=== PATIENT | male | born 1960 | race American Indian/Alaskan Native ===

== ENCOUNTER 2019-11-01 11:34 | Emergency (ER) | payer BC ==
--- NOTE | 2019-11-01 11:41 | Emergency Department Report ---
Blank Doc - Documentation Documentation: 58-year-old male that was sent by PCP for headache and left sided weakness to r/o CVA. Stated symptoms started 4 days ago. This initial assessment/diagnostic orders/clinical plan/treatment(s) is/are subject to change based on patient's health status, clinical progression and re- assessment by fellow clinical providers in the ED. Further treatment and workup at subsequent clinical providers discretion. Patient/guardians urged not to elope from the ED as their condition may be serious if not clinically assessed and managed. Initial orders include: 1- Patient sent to [facility] for further evaluation and treatment 2- stroke protocol
--- NOTE | 2019-11-01 12:20 | Cat Scan Report ---
CT BRAIN: 11/01/2019 INDICATION / CLINICAL INFORMATION: Stroke symptoms. COMPARISON: None available. FINDINGS: BRAIN/INTRACRANIAL STRUCTURES: Unenhanced CT images of the brain demonstrate no evidence of acute int racranial abnormality. Ventricles and sulci are normal in size and shape. There is no evidence of ischemic injury, hemorrhage, or mass. There are no abnormal extra-axial fluid collections. EXTRACRANIAL STRUCTURES: Unremarkable. IMPRESSION: Negative unenhanced CT of the brain. All CT scans at this location are performed using dose reduction to ALARA by means of automated expos ure control. Signer Name: Sha Meng MD Signed: 11/01/2019 12:16 PM Workstation Name: [id number]
[2019-11-01 12:52] LABS: Basophils # (Auto) 0.1 K/mm3 (0.0-0.1); Basophils % (Auto) 1.1 % (0.0-1.8); Eosinophils # (Auto) 0.2 K/mm3 (0.0-0.4); Hematocrit 58.9 % (35.5-45.6); Hemoglobin 19.2 gm/dl (11.8-15.2); Lymphocytes # (Auto) 1.1 K/mm3 (1.2-5.4); Lymphocytes % (Auto) 11.1 % (13.4-35.0); Mean Corpuscular HGB Conc 33 % (32-34); Mean Corpuscular Volume 80 fl (84-94); Monocytes # (Auto) 0.7 K/mm3 (0.0-0.8); Monocytes % (Auto) 7.4 % (0.0-7.3); Platelet Count 502 K/mm3 (140-440); Red Blood Count 7.37 M/mm3 (3.65-5.03); Red Cell Distribution Width 15.8 % (13.2-15.2)
[2019-11-01 13:02] LABS: INR 1.09 (0.87-1.13)
[2019-11-01 13:03] LABS: Partial Thromboplastin Time 33.7 Sec. (24.2-36.6); Thrombin Time 18.2 Sec. (15.1-19.6)
[2019-11-01 13:26] LABS: Creatine Kinase MB 2.3 ng/mL (0.0-4.0)
[2019-11-01 13:27] LABS: Alanine Aminotransferase 18 units/L (7-56); Albumin 4.5 g/dL (3.9-5); BUN/Creatinine Ratio 11; Blood Urea Nitrogen 13 mg/dL (9-20); Calcium 9.5 mg/dL (8.4-10.2); Hemolysis Index 26
--- NOTE | 2019-11-01 20:20 | Emergency Department Report ---
ED Neuro Deficit HPI - General Chief Complaint: Neuro Symptoms/Deficit Stated Complaint: POSS STROKE Time Seen by Provider: 11/01/19 11:40 Source: patient Mode of arrival: Ambulatory Limitations: No Limitations - History of Present Illness Initial Comments: Patient is a 58-year-old male that presents emergency room with complaints of headache, left arm weakness and left arm numbness. Patient states his symptoms started 4 to 5 days ago. Patient states his symptoms are worsening. Patient states his headache at this time is a 2 out of 10. Patient states when he arrived here his headache was a 10 out of 10. Patient states his headache is better with rest and ibuprofen. Patient states that as soon as the ibuprofen wears off his headache comes right back. Patient states the headache is a global headache. Patient states the headache is a stabbing pain. Patient denies blurry vision. Patient denies high blood pressure. Patient denies neck pain. Patient denies syncope. Patient denies trauma. Patient states he saw his primary care today and he sent him over here for an evaluation. Patient states that he is able to move his left arm but he has decreased sensation and difficulties picking things up with his left hand. Patient denies recent travel. Patient denies recent international travel. Patient denies exposure to the novel coronavirus. Patient denies sick contacts. Patient denies fever and chills. Patient denies cough. Patient denies diarrhea. Patient denies coming in contact with anybody with symptoms of the novel coronavirus. -: Sudden Location: left arm Presenting Symptoms: Present: Sudden, Severe Headache History of same: Yes Place: home Severity: severe Quality: constant Improves With: rest, medication Worsens With: time On Anticoagulants: No Context: sudden onset Associated Symptoms: headaches, weakness. denies: confusion, chest pain, cough, diaphoresis, fever/chills, loss of appetite, malise, nausea/vomiting, vertigo, seizures, shortness of breath, syncope - Related Data Allergies/Adverse Reactions: Allergies Allergy/AdvReac Type Severity Reaction Status Date / Time No Known Allergies Allergy Unverified 11/01/19 11:37 ED Review of Systems ROS: Stated complaint: POSS STROKE Other details as noted in HPI Constitutional: weakness. denies: chills, fever Eyes: denies: eye pain, eye discharge, vision change ENT: denies: ear pain, throat pain Respiratory: denies: cough, shortness of breath, wheezing Cardiovascular: denies: chest pain, palpitations Endocrine: no symptoms reported Gastrointestinal: denies: abdominal pain, nausea, diarrhea Genitourinary: denies: urgency, dysuria Musculoskeletal: denies: back pain, joint swelling, arthralgia Skin: denies: rash, lesions Neurological: as per HPI, headache, weakness, numbness Psychiatric: denies: anxiety, depression Hematological/Lymphatic: denies: easy bleeding, easy bruising ED Past Medical Hx - Past Medical History Previous Medical History?: Yes Hx Heart Attack/AMI: Yes - Surgical History Past Surgical History?: Yes Additional Surgical History: cardiac cath - Family History Family history: no significant - Social History Smoking Status: Never Smoker Substance Use Type: Alcohol ED Neuro Physical Exam - General Limitations: No Limitations General appearance: alert, in no apparent distress Suspected Stroke: Yes - Head Head exam: Present: atraumatic, normocephalic - Eye Eye exam: Present: normal appearance, PERRL Pupils: Present: normal accommodation - ENT ENT exam: Present: mucous membranes moist - Neck Neck exam: Present: normal inspection - Respiratory Respiratory exam: Present: normal lung sounds bilaterally. Absent: respiratory distress - Cardiovascular Cardiovascular Exam: Present: regular rate, normal rhythm. Absent: systolic murmur, diastolic murmur, rubs, gallop - GI/Abdominal GI/Abdominal exam: Present: soft, normal bowel sounds - Rectal Rectal exam: Present: deferred - Extremities Exam Extremities exam: Present: normal inspection - Back Exam Back exam: Present: normal inspection - Neurological Exam Neurological exam: Present: alert, oriented X3 - NIHSS Assessment Interval: Baseline 1a. Level of Consciousness: alert/keenly responsive 1b. LOC Questions: answers both correctly 1c. LOC Commands: performs tasks correctly 2. Best Gaze: normal 3. Visual: no visual loss 4. Facial Palsy: normal symmetrical movement 5b. Motor Arm Right: no drift 5a. Motor Arm Left: no drift 6a. Motor Leg Left: no drift 6b. Motor Leg Right: no drift 7. Limb Ataxia: absent 8. Sensory: mild/moderate sensory loss 9. Best Language: no aphasia 10. Dysarthria: normal 11. Extinction/Inattention: no abnormality Total Score: 1 Stroke Severity: Minor Stroke - Psychiatric Psychiatric exam: Present: normal affect, normal mood - Skin Skin exam: Present: warm, dry, intact, normal color. Absent: rash ED Course Vital Signs 11/01/19 11/01/19 11/01/19 20:28 20:30 20:31 Temperature 98.3 F Pulse Rate 96 H Respiratory 18 Rate Blood Pressure 144/96 O2 Sat by Pulse 97 96 Oximetry 11/01/19 20:57 Temperature Pulse Rate Respiratory 18 Rate Blood Pressure O2 Sat by Pulse Oximetry - Reevaluation(s) Reevaluation #1: I discussed all results with patient. I discussed plan of care with patient. Patient refuses admission. I discussed risk of refusing admission with patient. Patient voiced understanding of risk. Patient signed AMA form. Patient will be given discharge and strict ER precautions even though he is leaving the hospital AGAINST MEDICAL ADVICE. 11/01/19 22:25 - Consultations Consultation #1: Tele-neurology consulted. 11/01/19 20:20 I discussed case with neurology. Neurology recommends a Plavix 75 mg x 1 and admission for further stroke work-up. 11/01/19 21:51 - Lab Data Result diagrams: 11/01/19 12:28 11/01/19 12:28 Lab Results 11/01/19 11/01/19 11/01/19 Range/Units 12:28 12:28 12:28 WBC 9.6 (4.5-11.0) K/mm3 RBC 7.37 H (3.65-5.03) M/mm3 Hgb 19.2 H (11.8-15.2) gm/dl Hct 58.9 H (35.5-45.6) % MCV 80 L (84-94) fl MCH 26 L (28-32) pg MCHC 33 (32-34) % RDW 15.8 H (13.2-15.2) % Plt Count 502 H (140-440) K/mm3 Lymph % (Auto) 11.1 L (13.4-35.0) % [place] % (Auto) 7.4 H (0.0-7.3) % Eos % (Auto) 2.0 (0.0-4.3) % Baso % (Auto) 1.1 (0.0-1.8) % Lymph # 1.1 L (1.2-5.4) K/mm3 [place] # 0.7 (0.0-0.8) K/mm3 Eos # 0.2 (0.0-0.4) K/mm3 Baso # 0.1 (0.0-0.1) K/mm3 Seg Neutrophils % 78.4 H (40.0-70.0) % Seg Neutrophils # 7.6 (1.8-7.7) K/mm3 PT 14.2 (12.2-14.9) Sec. INR 1.09 (0.87-1.13) APTT 33.7 (24.2-36.6) Sec. Thrombin Time 18.2 (15.1-19.6) Sec. Sodium 141 (137-145) mmol/L Potassium 4.8 (3.6-5.0) mmol/L Chloride 104.9 (98-107) mmol/L Carbon Dioxide 21 L (22-30) mmol/L Anion Gap 20 mmol/L BUN 13 (9-20) mg/dL Creatinine 1.2 (0.8-1.3) mg/dL Estimated GFR > 60 ml/min BUN/Creatinine Ratio 11 % Glucose 104 H (75-100) mg/dL Calcium 9.5 (8.4-10.2) mg/dL Total Bilirubin 1.40 H (0.1-1.2) mg/dL AST 19 (5-40) units/L ALT 18 (7-56) units/L Alkaline Phosphatase 79 (35-129) units/L Total Creatine Kinase 66 (55-170) units/L CK-MB (CK-2) 2.3 (0.0-4.0) ng/mL CK-MB (CK-2) Rel Index 3.4 (0-4) Troponin T < 0.010 (0.00-0.029) ng/mL Total Protein 7.4 (6.3-8.2) g/dL Albumin 4.5 (3.9-5) g/dL Albumin/Globulin Ratio 1.6 % - Radiology Data Radiology results: report reviewed CT BRAIN: 11/01/2019 INDICATION / CLINICAL INFORMATION: Stroke symptoms. COMPARISON: None available. FINDINGS: BRAIN/INTRACRANIAL STRUCTURES: Unenhanced CT images of the brain demonstrate no evidence of acute intracranial abnormality. Ventricles and sulci are normal in size and shape. There is no evidence of ischemic injury, hemorrhage, or mass. There are no abnormal extra-axial fluid collections. EXTRACRANIAL STRUCTURES: Unremarkable. IMPRESSION: Negative unenhanced CT of the brain. - Medical Decision Making Patient is a 58-year-old male who presents emergency room with complaints of headache and left arm weakness and numbness. Patient was seen by neurologist. Neurology recommends admission for stroke work-up. Patient had labs done which were essentially unremarkable. Patient's head CT was negative for acute findings. Patient refused admission. Patient signed AMA form. I discussed all the risk with patient. Patient voiced understanding of the risk and still left the hospital AGAINST MEDICAL ADVICE. - Differential Diagnosis Stroke, weakness, numbness, headache Critical Care Time: Yes Critical care time in (mins) excluding proc time.: 35 Critical care attestation.: If time is entered above; I have spent that time in minutes in the direct care of this critically ill patient, excluding procedure time. Critical Care Time: 35 minutes ED Disposition Clinical Impression: Left arm weakness, Numbness Stroke Qualifiers: CVA mechanism: unspecified Qualified Code(s): I63.9 - Cerebral infarction, unspecified Headache Qualifiers: Headache type: unspecified Headache chronicity pattern: acute headache Intractability: not intractable Qualified Code(s): R51 - Headache Disposition: DC-07 LEFT AGAINST MED ADVICE Is pt being admited?: No Does the pt Need Aspirin: No Condition: Critical Instructions: Acute Headache (ED) Additional Instructions: Patient to follow-up with primary care in 2 to 3 days. Patient to follow-up with neurologist in 2 to 3 days. Patient to rest. Patient to increase water. Patient to avoid strenuous exercise or heavy lifting until cleared by neurologist. Patient to take Tylenol or ibuprofen as needed for pain. Patient to take meds as directed. Patient to return to the ER if condition worsens, changes or new symptoms arise. Referrals: PRIMARY CARE, [Primary Care Provider] - 2-3 Days Forms: AMA Form Time of Disposition: 22:27
--- NOTE | 2019-11-01 21:48 | Emergency Department Report ---
ED Neuro Deficit HPI - General Chief Complaint: Neuro Symptoms/Deficit Stated Complaint: POSS STROKE Time Seen by Provider: 11/01/19 11:40 Source: patient Mode of arrival: Ambulatory Limitations: No Limitations - History of Present Illness Initial Comments: [facility] TeleNeurology Consult Services Stat Consult Date of Service: 11/01/2019 20:47:35 Impression: Rule Out Acute Ischemic Stroke Comments/Sign-Out: Acute onset left hand weakness, unclear origin due to distribution being atypical for stroke due to distal nature as well as no face or leg involvement but he has does have a few general vascular risk factors. Admit for stroke work up CT HEAD: Showed No Acute Hemorrhage or Acute Core Infarct Metrics: [employer] Notification Time: 11/01/2019 20:46:20 Stamp Time: 11/01/2019 20:47:35 Callback Response Time: 11/01/2019 20:55:07 Video Start Time: 11/01/2019 21:37:51 Video End Time: 11/01/2019 21:47:53 Our recommendations are outlined below. Recommendations: Initiate Aspirin 81 MG Daily Initiate Plavix 75 MG Daily Smoking cessation, FLP, A1c Imaging Studies: MRI Head with and Without Contrast MRA Head and Neck Without Contrast When Available - Stroke Protocol Echocardiogram - Transthoracic Echocardiogram Therapies: Physical Therapy, Occupational Therapy, Speech Therapy Assessment When Applicable Disposition: Neurology Follow Up Recommended Sign Out: Discussed with Emergency Department Provider Chief Complaint: arm numbness History of Present Illness: Patient is a 59 year old Male. 59yM with hx of SC with PCI on ASA, +smoker here for acute neuro changes. Symptoms have been going on for 5-7 days. This includes left arm weakness where he has trouble using the hand writing and holding objectives. Sx are mainly distally in the arm. No tingling now but was this morning. No left face or leg symptoms. Denies radicular neck pain. Took asa today already. Anticoagulant use: No BP(141/106) Patient/Family was informed the Neurology Consult would happen via TeleHealth consult by way of interactive audio and video telecommunications and consented to receiving care in this manner. Due to the immediate potential for life-threatening deterioration due to underlying acute neurologic illness, I spent 35 minutes providing critical care. This time includes time for face to face visit via telemedicine, review of medical records, imaging studies and discussion of findings with providers, the patient and/or family. Dr Bhargav Mathis [facility] Case [id number] Location: left arm History of same: Yes Place: home Severity: severe Quality: constant Improves With: rest, medication Worsens With: time On Anticoagulants: No - Related Data Allergies/Adverse Reactions: Allergies Allergy/AdvReac Type Severity Reaction Status Date / Time No Known Allergies Allergy Unverified 11/01/19 11:37 ED Review of Systems ROS: Stated complaint: POSS STROKE Other details as noted in HPI Constitutional: weakness. denies: chills, fever Eyes: denies: eye pain, eye discharge, vision change ENT: denies: ear pain, throat pain Respiratory: denies: cough, shortness of breath, wheezing Cardiovascular: denies: chest pain, palpitations Endocrine: no symptoms reported Gastrointestinal: denies: abdominal pain, nausea, diarrhea Genitourinary: denies: urgency, dysuria Musculoskeletal: denies: back pain, joint swelling, arthralgia Skin: denies: rash, lesions Neurological: as per HPI, headache, weakness, numbness Psychiatric: denies: anxiety, depression Hematological/Lymphatic: denies: easy bleeding, easy bruising ED Past Medical Hx - Past Medical History Previous Medical History?: Yes Hx Heart Attack/AMI: Yes - Surgical History Past Surgical History?: Yes Additional Surgical History: cardiac cath - Social History Smoking Status: Current Every Day Smoker Substance Use Type: Alcohol ED Neuro Physical Exam - General Limitations: No Limitations General appearance: alert, in no apparent distress Suspected Stroke: Yes - NIHSS Assessment Interval: Baseline 1a. Level of Consciousness: alert/keenly responsive 1b. LOC Questions: answers both correctly 1c. LOC Commands: performs tasks correctly 2. Best Gaze: normal 3. Visual: no visual loss 4. Facial Palsy: normal symmetrical movement 5b. Motor Arm Right: no drift 5a. Motor Arm Left: no drift 6a. Motor Leg Left: no drift 6b. Motor Leg Right: no drift 7. Limb Ataxia: absent 8. Sensory: normal 9. Best Language: no aphasia 10. Dysarthria: normal 11. Extinction/Inattention: no abnormality Total Score: 0 Stroke Severity: No Stroke Symptoms ED Course Vital Signs 11/01/19 11/01/19 11/01/19 20:28 20:30 20:31 Temperature 98.3 F Pulse Rate 96 H Respiratory 18 Rate Blood Pressure 144/96 O2 Sat by Pulse 97 96 Oximetry 11/01/19 20:57 Temperature Pulse Rate Respiratory 18 Rate Blood Pressure O2 Sat by Pulse Oximetry - Lab Data Result diagrams: 11/01/19 12:28 11/01/19 12:28 Lab Results 11/01/19 11/01/19 11/01/19 Range/Units 12:28 12:28 12:28 WBC 9.6 (4.5-11.0) K/mm3 RBC 7.37 H (3.65-5.03) M/mm3 Hgb 19.2 H (11.8-15.2) gm/dl Hct 58.9 H (35.5-45.6) % MCV 80 L (84-94) fl MCH 26 L (28-32) pg MCHC 33 (32-34) % RDW 15.8 H (13.2-15.2) % Plt Count 502 H (140-440) K/mm3 Lymph % (Auto) 11.1 L (13.4-35.0) % [place] % (Auto) 7.4 H (0.0-7.3) % Eos % (Auto) 2.0 (0.0-4.3) % Baso % (Auto) 1.1 (0.0-1.8) % Lymph # 1.1 L (1.2-5.4) K/mm3 [place] # 0.7 (0.0-0.8) K/mm3 Eos # 0.2 (0.0-0.4) K/mm3 Baso # 0.1 (0.0-0.1) K/mm3 Seg Neutrophils % 78.4 H (40.0-70.0) % Seg Neutrophils # 7.6 (1.8-7.7) K/mm3 PT 14.2 (12.2-14.9) Sec. INR 1.09 (0.87-1.13) APTT 33.7 (24.2-36.6) Sec. Thrombin Time 18.2 (15.1-19.6) Sec. Sodium 141 (137-145) mmol/L Potassium 4.8 (3.6-5.0) mmol/L Chloride 104.9 (98-107) mmol/L Carbon Dioxide 21 L (22-30) mmol/L Anion Gap 20 mmol/L BUN 13 (9-20) mg/dL Creatinine 1.2 (0.8-1.3) mg/dL Estimated GFR > 60 ml/min BUN/Creatinine Ratio 11 % Glucose 104 H (75-100) mg/dL Calcium 9.5 (8.4-10.2) mg/dL Total Bilirubin 1.40 H (0.1-1.2) mg/dL AST 19 (5-40) units/L ALT 18 (7-56) units/L Alkaline Phosphatase 79 (35-129) units/L Total Creatine Kinase 66 (55-170) units/L CK-MB (CK-2) 2.3 (0.0-4.0) ng/mL CK-MB (CK-2) Rel Index 3.4 (0-4) Troponin T < 0.010 (0.00-0.029) ng/mL Total Protein 7.4 (6.3-8.2) g/dL Albumin 4.5 (3.9-5) g/dL Albumin/Globulin Ratio 1.6 % Critical care attestation.: If time is entered above; I have spent that time in minutes in the direct care of this critically ill patient, excluding procedure time. ED Disposition Clinical Impression: Stroke Disposition: OP ADMIT IP TO THIS HOSP Is pt being admited?: Yes Condition: Stable Referrals: PRIMARY CARE, [Primary Care Provider] - 3-5 Days
[2019-11-01] MEDS ORDERED: CLOPIDOGREL 75 MG TAB PO ONE (22:25)
[2019-11-01 22:36] VITALS: BP 155/103
== END 2019-11-01 22:36 | disposition left against medical advice (07) ==
LOC: ED 11:34
DX: I63.9 Cerebral infarction, unspecified (principal); R20.0 Anesthesia of skin; I25.2 Old myocardial infarction; Z79.899 Other long term (current) drug therapy
CPT/HCPCS: 36415; 70450; 80053; 82550; 82553; 84484; 85025; 85610; 85670; 85730